=== PATIENT | female | born 1965 | race Hispanic/Latino ===

== ENCOUNTER → 2020-03-19 | Day surgery (SDC) | payer BC, OTHER ==
[~2020-03-19] MED LIST: CRESTOR10 MG PO; HYOSCYAMINE 0.125 MG TAB ONE; JOLIVETTE0.35 MG PO; KETAMINE HCL INJ 50 MG/ML 10 ML VIAL ONE; LIDOCAINE HCL 2% LOCAL INJ 5 ML SDV VIAL INJ ONE; METOPROLOL TART50 MG PO; MIDAZOLAM HCL 2 MG/2 ML VIAL ONE; PROPOFOL IV EMULSION 10 MG/ML 20 ML VIAL ONE
--- NOTE | 2020-03-19 07:15 | NUR ---
SPIRITUAL CARE - Pre-Surgery Assessment: Pt in bed. Pt's at bedside. Pt reported supportive attention from family and friends. Intervention: Educational Director provided pastoral presence, hospitality, and sympathetic listening. Acquainted pt with availability of processing clerk while hospitalized. Outcome: Pt expressed appreciation for visit. No need for follow up indicated at this time. JORGE LUIS [facility] Spiritual [facility] Department O: [phone]
[2020-03-19 09:50] VITALS: BP 128/81
--- NOTE | 2020-03-19 10:07 | Operative Report ---
DATE OF PROCEDURE: 03/19/2020 SURGEON: Gregory Gomes MD PROCEDURE: Colonoscopy. INDICATIONS FOR COLONOSCOPY: Colorectal cancer screening, brother with colon cancer. MEDICATIONS: The patient was done under MAC, please see anesthesiologist's note. PROCEDURE IN DETAIL: With the patient in the left lateral decubitus position, a flexible fiberoptic Olympus colonoscope was inserted into the rectum with ease and advanced all the way to the cecum. It was then withdrawn slowly, mucosa overlying the cecum, ascending, transverse, descending, sigmoid, and rectum grossly appeared to be within normal limits. The scope was then retroflexed into the distal rectum and small internal hemorrhoids were noted, none of which was actively bleeding. The scope was then straightened out, it was subsequently withdrawn, and the patient tolerated the procedure well. IMPRESSION: Internal hemorrhoids, none actively bleeding. PLAN: Initiate high-fiber, low-fat diet. Initiate high-fiber supplement. The patient might benefit from a followup colonoscopy in 3 years. Gregory Gomes MD [facility] [place][id number] cc: Wale Chen DO
== END | disposition home or self-care (01) ==
LOC: OR 05:50
PROVIDERS: ATTEND Internal Medicine Gastroenterology
DX: Z12.11 Encounter for screening for malignant neoplasm of colon (principal); K64.8 Other hemorrhoids; I10 Essential (primary) hypertension; E78.5 Hyperlipidemia, unspecified; R00.1 Bradycardia, unspecified; Z01.810 Encounter for preprocedural cardiovascular examination; Z01.812 Encounter for preprocedural laboratory examination; Z11.59 Encounter for screening for other viral diseases; Z68.34 Body mass index [BMI] 34.0-34.9, adult; Z80.0 Family history of malignant neoplasm of digestive organs; Z83.71 Family history of colonic polyps
CPT/HCPCS: 45378; 81025; 93005; J2001; J2250; J2704; U0002